=== PATIENT | female | born 2005 | race Caucasian/White ===

== ENCOUNTER 2024-08-14 08:55 | Emergency (ER) | payer OTHER, SELFPAY ==
[2024-08-14 09:01] VITALS: BP 113/59
--- NOTE | 2024-08-14 09:34 | ED.GENMED ---
History of Present Illness
<Sudha Benson PA-C - Last Filed: 08/14/24 18:04>
General
Chief Complaint: Abdominal Pain
Source: patient
Exam Limitations: none
Time Seen by Provider: 08/14/24 09:23
History of Present Illness
History of Present Illness:
18yoF with no significant past medical history presenting with her sister for evaluation of vomiting and diarrhea. Symptoms began 1 week ago and have been constant. She states she feels like she is on the toilet all day and has been having
multiple episodes of diarrhea daily. She had 7 episodes of vomiting yesterday. She also reports a discomfort in her right lower abdomen which has been ongoing for the week. She was seen at urgent care yesterday and was told to go to the ED for
concern for appendicitis. She checked into [facility] but ultimately left without being seen due to long wait times. Patient denies any fevers, dysuria, vaginal bleeding, vaginal discharge. No known sick contacts, recent travel, suspicious food
intake, or recent antibiotics. Patient works in a daycare. Of note, patient did have 'vomiting issues' in her teenage years. She had an endoscopy at that time and was told that everything was normal. No previous abdominal surgeries. She smokes
marijuana nightly to go to sleep.
Past History
<Sudha Benson PA-C - Last Filed: 08/14/24 18:04>
Social History
Tobacco: Smoker
Alcohol: Occasional
Drug: None
Phy Exam
<Sudha Benson PA-C - Last Filed: 08/14/24 18:04>
General Physical Exam
General Presentation: well appearing and no apparent distress
General age: appears stated age
General Skin: warm and dry
General Habitus: normal
General Mental: alert
ENT Exam
ENT Exam: normocephalic
Cardiovascular Exam
Cardiovascular Exam: regular rate/rhythm and no murmur
Pulmonary Exam
Pulmonary Exam: lungs clear, no respiratory distress, no rales, no crackles and no rhonchi
Gastrointestinal Exam
Gastrointestinal Exam: soft, non distended and other (Mild tenderness in RLQ. Abdomen soft, non-distended. No guarding or rigidity. )
Neurological Exam
Neurological Exam: alert
[place]ato Coma Scale
Eye Opening: Spontaneous
Verbal Response: Oriented
Motor Response: Obeys Commands
GCS Total Score: 15
Skin Exam
Skin Exam: normal color and warm/dry
Psychiatric Exam
Psychiatric Exam: normal mood/affect
<Sravani Javier NP - Last Filed: 08/14/24 17:31>
Pato Coma Scale
GCS Total Score: 15
Course
<Sudha Benson PA-C - Last Filed: 08/14/24 18:04>
Orders/Labs/Results
Orders:
Orders
08/14/24 09:05
Test Result ONCE
08/14/24 09:33
0.9% Sodium Chloride 1000 ml [Nss] 1,000 ml IV BOLUS
Ondansetron Injectable [Zofran] 4 mg IV NOW STA
08/14/24 09:34
CT Abd/pel W Iv And Oral Contr Urgent
Comment:
Reason For Exam: RLQ pain, vomiting, diarrhea
Iohexol [Omnipaque] See Protocol PO NOW STA
08/14/24 09:43
Complete Blood Count/With Diff Urgent
Comprehensive Metabolic Panel Urgent
HCG, Serum Qualitative Screen Urgent
Lipase Urgent
08/14/24 12:57
Pelvis & Transvaginal US [US Pelvis W Transvag Combined] Urgent
Comment:
Reason For Exam: lower abd pain, abnormal CT
US Abdomen Complete/Upper Urgent
Comment:
Reason For Exam: R sided abd pain, abnormal CT
Abnormal Lab Results
08/14/24
09:43
RBC 4.01 L 10^6/uL
(4.20-5.40)
MCH 32.4 H pg
(27.0-31.0)
MPV 10.6 H fL
(7.4-10.4)
Total Bilirubin < 0.1 L mg/dl
(0.2-1.3)
08/14/24 09:43
08/14/24 09:43
Vital Signs
Initial and Last Documented VS:
Initial Vital Signs
Temp Pulse Resp BP Pulse Ox
98.2 F 62 18 113/59 99
08/14/24 09:01 08/14/24 09:01 08/14/24 09:01 08/14/24 09:01 08/14/24 09:01
Last Documented Vital Signs
Temp Pulse Resp BP Pulse Ox
98.4 F 63 18 102/72 99
08/14/24 12:53 08/14/24 17:48 08/14/24 17:48 08/14/24 17:48 08/14/24 17:48
Jefflt;Sravani Javier NP - Last Filed: 08/14/24 17:31>
Orders/Labs/Results
Orders:
Orders
08/14/24 09:05
Test Result ONCE
08/14/24 09:33
0.9% Sodium Chloride 1000 ml [Nss] 1,000 ml IV BOLUS
Ondansetron Injectable [Zofran] 4 mg IV NOW STA
08/14/24 09:34
CT Abd/pel W Iv And Oral Contr Urgent
Comment:
Reason For Exam: RLQ pain, vomiting, diarrhea
Iohexol [Omnipaque] See Protocol PO NOW STA
08/14/24 09:43
Complete Blood Count/With Diff Urgent
Comprehensive Metabolic Panel Urgent
HCG, Serum Qualitative Screen Urgent
Lipase Urgent
08/14/24 12:57
Pelvis & Transvaginal US [US Pelvis W Transvag Combined] Urgent
Comment:
Reason For Exam: lower abd pain, abnormal CT
US Abdomen Complete/Upper Urgent
Comment:
Reason For Exam: R sided abd pain, abnormal CT
Abnormal Lab Results
08/14/24
09:43
RBC 4.01 L 10^6/uL
(4.20-5.40)
MCH 32.4 H pg
(27.0-31.0)
MPV 10.6 H fL
(7.4-10.4)
Total Bilirubin < 0.1 L mg/dl
(0.2-1.3)
08/14/24 09:43
08/14/24 09:43
Vital Signs
Initial and Last Documented VS:
Initial Vital Signs
Temp Pulse Resp BP Pulse Ox
98.2 F 62 18 113/59 99
08/14/24 09:01 08/14/24 09:01 08/14/24 09:01 08/14/24 09:01 08/14/24 09:01
Last Documented Vital Signs
Temp Pulse Resp BP Pulse Ox
98.4 F 63 18 102/72 99
08/14/24 12:53 08/14/24 17:48 08/14/24 17:48 08/14/24 17:48 08/14/24 17:48
Jefflt;Sudha Benson PA-C - Last Filed: 08/14/24 18:04>
MDM/Problems Addressed
Differential Diagnosis Includes:
18yoF here with n/v/d x 1 week. Seen by urgent care last night and had some RLQ pain so was told to go to the ED to r/o appendicitis. VSS. She is well appearing in no distress. No signs of peritonitis on abdominal exam. Differential diagnosis
includes but is not limited to: gastroenteritis, viral illness, dehydration, appendicitis, ovarian cyst
Initial ED plan: Check abdominal labs, HCG, stool studies, and CT abdomen. IV Zofran and fluid bolus for symptoms.
Final disposition: Labs reassuring including normal white count, electrolytes, renal function, LFTs. CT is negative for appendicitis. Imaging shows questionable pericholecystic fluid as well as possible left hydrosalpinx. Imaging also reveals a L
adrenal mass, likely an adenoma for which outpatient MRI is recommended. Findings discussed with patient and she was provided with a copy of the radiology report. RUQ ultrasound and pelvic ultrasound ordered for further evaluation although she
denies any fevers, vaginal discharge, or LLQ pain. Patient feeling much better after Zofran and is tolerating PO intake. Case signed out to Sravani TRACY pending ultrasound results.
<Sravani Javier NP - Last Filed: 08/14/24 17:31>
*Critical Care Note
Total Time (30-74mins, 75-104mins- exclusive of procedures): Not Applicable
<Sravani Javier NP - Last Filed: 08/14/24 17:31>
Update Note
Update Note:
US report reviewed with pateint and mother. No findings to explain her pain. SHe is resting comfortable. Will discharge home, recommend clear liquids and advance as tolerated, followupw tih PCP in AM. Given instructions on s/s to return to ED
and she is agreeble to plan
ED Attending Note
<Sudha Benson PA-C - Last Filed: 08/14/24 18:04>
-
Portions of this chart may have been created with voice recognition software.� Occasional wrong word or��sound alike� substitutions may have occurred due to the inherent limitations of voice recognition software.
Discharge Plan
Departure
Patient Disposition: Home (Routine Discharge)
Date of Disposition: 08/14/24
Time of Disposition: 17:26
Patient with high blood pressure during this ER visit?: No
Condition: Good
Covid-19: Not Applicable
Discharge Problem:
Abdominal pain
Instructions: Clear Liquid Diet, Abdominal Pain
Prescriptions:
No Action
trazodone 100 MG tablet
100 mg PO DAILY
prazosin [Minipress] 2 MG capsule
2 mg PO DAILY
aripiprazole [Abilify] 5 MG tablet
5 mg PO DAILY
lansoprazole 15 MG capsule,delayed release(DR/EC)
15 mg PO DAILY Qty: 14 0RF
Rx Instructions:
take in morning for 14 days
ondansetron 4 MG tablet,disintegrating
4 mg PO TIDPRN PRN (Reason: nausea/vomiting) Qty: 12 0RF
Referrals:
Baltazar Mae MD [Family Provider] - Tomorrow
Activity Restrictions/Additional Instructions:
Return to the emergency department immediately for any changes in/worsening of your symptoms.
Interventions
Interventions:
*Risk Screen - Suicide Last Done: 08/14/24 09:01
*General Assessment Last Done: 08/14/24 09:01
*Neglect/Abuse Screening Last Done: 08/14/24 09:01
*Nursing Disposition Last Done: 08/14/24 17:48
AU-Tsctas-Rxaielqnpl Assessment Last Done: 08/14/24 12:53
Discharge Date and Time
Discharge Date/Time: 08/14/24 17:51
Print Language: LAO
[2024-08-14] MEDS: OMNIPAQUE 50 ML PO (09:43)
[2024-08-14] MEDS: NSS 1000 IV (09:43)
[2024-08-14] MEDS: ZOFRAN 4 MG IV (09:43)
[2024-08-14 09:59] LABS: % Basophils 0.2 % (0-2); % Eosinophils 1.7 % (0-6); % Immature Granulocytes 0.3 % (0-0.5); % Lymphocytes 38.9 % (20.5-51.1); % Monocytes 6.9 % (1.7-9.3); Absolute Eosinophils 0.1 10^3/uL (0-0.7); Absolute Lymphocytes 2.3 10^3/uL (1.2-3.4); Absolute Monocytes 0.4 10^3/uL (0.1-0.6); Hematocrit 37.9 % (37.0-47.0); Mean Corp Hgb Conc. 34.3 g/dL (33.0-37.0); Mean Corpuscular Hgb 32.4 pg (27.0-31.0); Mean Corpuscular Volume 94.5 fL (81.0-99.0); Mean Platelet Volume 10.6 fL (7.4-10.4); Nucleated Red Blood Cells % 0 %; Platelet Count 252 10^3/uL (130-400); Red Blood Cell Count 4.01 10^6/uL (4.20-5.40); Red Cell Dist. Width 13.6 % (11.5-14.5); White Blood Cell Count 5.8 10^3/uL (4.8-10.8)
[2024-08-14 10:12] LABS: HCG, Serum Qualitative Screen Negative
[2024-08-14 10:17] LABS: ALT (SGPT) 18 U/L (0-35); AST (SGOT) 24 U/L (14-36); Albumin 4.1 g/dl (3.5-5.0); Alkaline Phosphatase 47 U/L (38-126); Blood Urea Nitrogen 11 mg/dl (7-17); Calcium 8.9 mg/dl (8.4-10.2); Carbon Dioxide 25 mmol/L (22-30); Chloride 106 mmol/L (98-107); Glucose 99 mg/dl (70-99); Lipase 65 U/L (23-300); Potassium 4.4 mmol/L (3.5-5.1); Sodium 140 mmol/L (135-145); Total Bilirubin < 0.1 mg/dl (0.2-1.3); Total Protein 6.6 g/dl (6.3-8.2); eGFR > 60.00
[2024-08-14 12:53] VITALS: BP 100/61
[2024-08-14 17:48] VITALS: BP 102/72
== END 2024-08-14 17:51 | disposition home or self-care (01) ==
LOC: EMR 08:55
PROVIDERS: EMERGENCY PHYSICIAN Emergency Medicine; FAMILY PHYSICIAN Family Medicine
DX: R10.31 Right lower quadrant pain (principal); F17.200 Nicotine dependence, unspecified, uncomplicated
CPT/HCPCS: 99285; 96374; 96361; 74177; 76700; 76830; 76856; 80053; 83690; 84703; 85025; Q9967

== ENCOUNTER 2025-02-15 12:51 | Emergency (ER) | payer SELFPAY ==
[2025-02-15 12:53] VITALS: BP 123/100
[2025-02-15 13:00] VITALS: BP 112/80
[2025-02-15 13:32] VITALS: BMI 20.7
--- NOTE | 2025-02-15 13:38 | EDRN ---
Laith TRACY in room w/ pt at this time.
--- NOTE | 2025-02-15 13:42 | ED.GENMED ---
History of Present Illness
General
Chief Complaint: Overdose Unintentional
Source: patient
Exam Limitations: none
Time Seen by Provider: 02/15/25 13:34
Nursing documentation reviewed up to this point in time: agreed with
History of Present Illness
History of Present Illness:
19-year-old female who reports involuntary shaking and an inability to sleep, potentially secondary to drinking about three cranberry vodka drinks and possibly a vodka and energy drink between 10p and 1 a last night. The patient was unsure if an
unknown substance was added to her drink. She was found shaking at 7 am on her living room floor by her cousin, at bedside who states he couldn't arouse her and her eyes were rolling back. The last thing the patient remembers from the previous
night is being given an energy drink, leaving the bar around 1 a.m. and then upon awakening 7 a.m., she attempted to reach her bathroom to vomit and vomited several times between 7a and 12 p. No vomiting since and denies feeling nauseous now. The
patient has noted a headache 01/23 . She denies chest pain, difficulty breathing, or abdominal pain. At this time she feels little fatigued and mild blurry vision and trouble focusing.
Past History
Past History
ED Past Medical History: None
ED Past Surgical History: None
Social History
Tobacco: Smoker
Alcohol: Occasional
Drug: None
Personal: Single
Living: with family
Employment: Employed
Review of Systems
Review of Systems
Allergies reviewed?: Yes
All Other Systems: ROS reviewed and negative except as documented in HPI and ROS
Skin: Reports no symptoms
Neurological: Reports headache; Denies dizzy, weakness or numbness
Phy Exam
Physical Exam
Physical Exam:
GENERAL: No acute distress. A&Ox3.
CONSTITUTIONAL: Afebrile.
EYES: clear, conjunctivae normal
ENMT: moist mucus membranes, Pharynx nl
RESPIRATORY: Regular respirations, nonlabored, lungs clear.
CARDIOVASCULAR: Regular rate and rhythm, no murmurs, no rubs.
GI: Soft, nontender, normal BS
MUSCULOSKELETAL: Moves with ease. Well perfused.
SKIN: Warm, dry, pink
PSYCH: Normal mood and affect. Well kept, interactive and appropriate
NEUROLOGIC: Mild trembling of hands when she tries to use her phone. CN II through XII intact. Awake, alert and oriented. No focal neurological deficits
Course
Orders/Labs/Results
Orders:
Orders
02/15/25 13:34
Test Result ONCE
02/15/25 13:35
HCG, Urine Qualitative Screen Urgent
Date Specimen was Collected: 02/15/25
Time Specimen was Collected: 13:33
Urine Drug Abuse Screen Urgent
Date Specimen was Collected: 02/15/25
Time Specimen was Collected: 13:33
02/15/25 13:42
0.9% Sodium Chloride 1000 ml [Nss] 1,000 ml IV BOLUS
02/15/25 13:47
Acetaminophen [Tylenol] 650 mg PO NOW STA
02/15/25 13:54
Complete Blood Count/With Diff Urgent
Comprehensive Metabolic Panel Urgent
Abnormal Lab Results
02/15/25 02/15/25
13:35 13:54
RBC 3.95 L 10^6/uL
(4.20-5.40)
Hct 36.6 L %
(37.0-47.0)
MCH 32.2 H pg
(27.0-31.0)
Absolute Neuts (auto) 7.7 H 10^3/uL
(1.4-6.5)
Absolute Monos (auto) 0.7 H 10^3/uL
(0.1-0.6)
Creatinine 0.5 L mg/dL
(0.6-1.0)
U Marijuana (THC) Screen Positive H
(Negative)
02/15/25 13:54
02/15/25 13:54
Vital Signs
Initial and Last Documented VS:
Initial Vital Signs
Temp Pulse Resp BP Pulse Ox
98.2 F 101 18 123/100 99
02/15/25 12:53 02/15/25 12:53 02/15/25 12:53 02/15/25 12:53 02/15/25 12:53
Last Documented Vital Signs
Temp Pulse Resp BP Pulse Ox
98.2 F 72 21 115/64 99
02/15/25 12:53 02/15/25 14:30 02/15/25 14:30 02/15/25 14:00 02/15/25 14:32
MDM/Problems Addressed
Differential Diagnosis Includes:
1. Alcohol intoxication
2. Substance-induced tremor
3. Anxiety disorder
4. Hypoglycemia
5. Electrolyte imbalance
6. Energy drink overdose
7. Withdrawal symptoms
8. Acute intoxication by unknown substances
9. Dehydration
10. Cannabis-related adverse effects
MDM/Problems Addressed:
19-year-old female who reports involuntary shaking and an inability to sleep, potentially secondary to drinking about three cranberry vodka drinks and possibly a vodka and energy drink between 10p and 1 a last night. The patient was unsure if an
unknown substance was added to her drink. She was found shaking at 7 am on her living room floor by her cousin, at bedside who states he couldn't arouse her and her eyes were rolling back. The last thing the patient remembers from the previous
night is being given an energy drink, leaving the bar around 1 a.m. and then upon awakening 7 a.m., she attempted to reach her bathroom to vomit and vomited several times between 7a and 12 p. No vomiting since and denies feeling nauseous now. The
patient has noted a headache 01/23 . She denies chest pain, difficulty breathing, or abdominal pain. At this time she feels little fatigued and mild blurry vision and trouble focusing.
She does smoke marijuana daily
Plan:
- Administer intravenous fluids and perform basic laboratory tests.
- Provide yanet miguel to ascertain if the patient can tolerate oral intake.
- Offer acetaminophen for headache management.
- Monitor for potential use of antiemetic if nausea develops.
Labs pending UDS pending
Patient has her cousins in the room with her they are laughing and joking she is in no distress
No indication of seizure
2:45 PM:
CBC normal
CMP normal
hCG negative
UDS positive for marijuana otherwise negative
Patient has received a liter of IV fluids, she is laughing and joking with her friends in the room and in no distress. She is stable for discharge.
*Pulse Oximetry
SaO2: 99
Oxygen Mode of Delivery: Room air
Patient hypoxic: not evaluated
*Critical Care Note
Total Time (30-74mins, 75-104mins- exclusive of procedures): Not Applicable
ED Attending Note
-
Portions of this chart may have been created with voice recognition software.� Occasional wrong word or��sound alike� substitutions may have occurred due to the inherent limitations of voice recognition software.
Discharge Plan
Departure
Patient Disposition: Home (Routine Discharge)
Date of Disposition: 02/15/25
Time of Disposition: 14:49
Patient with high blood pressure during this ER visit?: No
Condition: Good
Discharge Problem:
Hangover without complication
Instructions: Alcohol intoxication - ED discharge instructions
Prescriptions:
No Action
trazodone 100 MG tablet
100 mg PO DAILY
prazosin [Minipress] 2 MG capsule
2 mg PO DAILY
aripiprazole [Abilify] 5 MG tablet
5 mg PO DAILY
lansoprazole 15 MG capsule,delayed release(DR/EC)
15 mg PO DAILY Qty: 14 0RF
Rx Instructions:
take in morning for 14 days
ondansetron 4 MG tablet,disintegrating
4 mg PO TIDPRN PRN (Reason: nausea/vomiting) Qty: 12 0RF
Referrals:
UNKNOWN - PT DOES,NOT KNOW [Family Provider]
Activity Restrictions/Additional Instructions:
As we discussed, nothing worrisome in your workup here today.
Limit your intake of alcohol and stay hydrated with water in between drinks
Interventions
Interventions:
*Risk Screen - Suicide Last Done: 02/15/25 12:53
*General Assessment Last Done: 02/15/25 13:28
*Neglect/Abuse Screening Last Done: 02/15/25 12:53
*ED- Fall Risk Assessment Last Done: 02/15/25 13:28
*ED COVID-19 Vaccine History Last Done: 02/15/25 13:28
*Nursing Disposition Last Done: 02/15/25 15:03
ED- Cardiac Assessment Last Done: 02/15/25 14:32
ED- Neurological Assessment Last Done: 02/15/25 14:32
ED-Psychological Assessment Last Done: 02/15/25 14:32
ED- Pulmonary Assessment Last Done: 02/15/25 14:32
Discharge Date and Time
Discharge Date/Time: 02/15/25 15:04
Print Language: MACEDONIAN
[2025-02-15] MEDS: TYLENOL 650 MG PO (13:56)
[2025-02-15] MEDS: NSS 1000 IV (13:58)
[2025-02-15 14:00] VITALS: BP 115/64
[2025-02-15 14:03] LABS: HCG, Urine Qualitative Screen Negative
[2025-02-15 14:04] LABS: Hematocrit 36.6 % (37.0-47.0); Hemoglobin 12.7 g/dL (12.0-16.0); Mean Corp Hgb Conc. 34.7 g/dL (33.0-37.0); Mean Corpuscular Volume 92.7 fL (81.0-99.0); Nucleated Red Blood Cells % 0 %; Platelet Count 286 10^3/uL (130-400); Red Cell Dist. Width 12.7 % (11.5-14.5)
[2025-02-15 14:30] LABS: ALT (SGPT) 14 U/L (0-35); AST (SGOT) 21 U/L (14-36); Albumin 4.3 g/dl (3.5-5.0); Alkaline Phosphatase 46 U/L (38-126); Blood Urea Nitrogen 9 mg/dl (7-17); Calcium 9.3 mg/dl (8.4-10.2); Carbon Dioxide 27 mmol/L (22-30); Chloride 106 mmol/L (98-107); Estimated Creatinine Clearance 123 ml/min; Glucose 98 mg/dl (70-99); Potassium 3.9 mmol/L (3.5-5.1); Sodium 139 mmol/L (135-145); Total Protein 6.8 g/dl (6.3-8.2); eGFR > 60.00
== END 2025-02-15 15:04 | disposition home or self-care (01) ==
LOC: EMR 12:51
PROVIDERS: Registered Nurse; EMERGENCY PHYSICIAN Emergency Medicine
DX: F10.120 Alcohol abuse with intoxication, uncomplicated (principal); R51.9 Headache, unspecified; F17.200 Nicotine dependence, unspecified, uncomplicated
CPT/HCPCS: 96360; 96361; 99284; 80053; 80306; 81025; 85025